=== PATIENT | male | born 1950 | race Caucasian/White ===

== ENCOUNTER → 2016-09-27 | Outpatient (CLI) | payer MEDICARE ==
[2015-06-08 15:23] VITALS: BP 141/70
[~2016-09-27] MED LIST: CRESTOR10 MG PO; HYDR-2678 PO; OMEP20CA9 PO; [UNRECOGNIZED DRUG - CODE]
--- NOTE | 2016-09-27 10:16 | RAD ---
Indication cholangiocarcinoma. B-cell lymphoma. PET/CT was performed from the skull through the proximal thigh. CT was performed primarily for localization and attenuation purposes as opposed to primary diagnostic purposes. The blood sugar during the examination was 101. 13.2 uCi of FDG was administered. Note is made of a previous examination 06/14/2016. On CT the visualized brain appears unremarkable. There is some debris, likely incidental, in the left maxillary sinus. There is a lymph node in the ventral left neck, immediately adjacent to the mandible measuring approximately 1.8 cm in greatest dimension. A few lymph nodes are noted in the axillary regions bilaterally. Significant mediastinal or hilar adenopathy is not seen. There is some coronary artery calcification. There is a small nodule in the right lower lobe unchanged. A parenchymal nodule in the right upper lobe, unchanged. Additional nodule seen in the left lower lobe, also unchanged. The liver and spleen appear unremarkable and the pancreas appears grossly normal. No adrenal or significant renal anomalies are seen. There is a right renal calculus. Vascular stent are noted in the pelvis. There are degenerative changes in the lumbar spine. On PET there is normal FDG activity in the visualized brain. The enlarged lymph node in the left neck is FDG avid. Maximum SUV is approximately 6.4. This represents a change compared to the previous exam. There are mildly avid FDG lymph nodes in the left axilla maximum SUV 2.4. (Previously maximum SUV associated with this node was 1.5). There is an additional lymph node behind the right pectoralis minor muscle new relative to the previous exam. Maximum SUV is 2. An additional minimally avid lymph node is seen laterally in the axilla. No FDG avid nodes are seen in the mediastinum or hilar areas. In the abdomen previously identified tiny node in the left external iliac chain is again seen. Maximum SUV on today's examination associated with this node is 2.9 whereas previously it was 2.6. An FDG avid lymph node with a maximum SUV of 4.9 is seen in the right groin (whereas previously the maximum SUV associated with this node was 2). 2 FDG avid lymph nodes are noted in the left groin. The more cephalad node has a maximum SUV of 6.8 whereas previously it was 4.2. The more inferior node has a maximum SUV of 7.1 where as previously it was 3.9. Some brown fat is noted in both hips. IMPRESSION: Increased FDG activity, relative to the prior examination, in lymph nodes in both groins, a small lymph node in the left external iliac chain and in both axilla and the left neck suggesting recurrent lymphoma..
== END | disposition home or self-care (01) ==
LOC: PETSC 07:31
PROVIDERS: ATTEND Internal Medicine Hematology & Oncology
DX: C22.1 Intrahepatic bile duct carcinoma (principal)
CPT/HCPCS: 78815; A9552

== ENCOUNTER → 2016-10-15 | Day surgery (SDC) | payer MEDICARE ==
[~2016-10-15] VITALS: Ht 182.9 cm; Wt 88.0 kg
[~2016-10-15] MED LIST changes: +BUPIVACAINE-EPI 0.5%-1:200000 50 ML VIAL. ONE; +CEFAZOLIN 2GM PREMIX 50 ML IV ONE; +DEXAMETHASONE SOD PHOS 20 MG/5 ML VIAL. ONE; +EPHEDRINE PF IN SALINE 50 MG/5 ML DISP.SYRIN. IV ONE; +FENTANYL PF 100 MCG/2 ML VIAL. IV PRN; +FENTANYL PF 100 MCG/2 ML VIAL. ONE; +HYDROMORPHONE 2 MG/ML VIAL. IV PRN; +IV RINGERS,LACTATED 1000ML 1,000 ML IV SCH; +LIDOCAINE 1% 1 ML SYRINGE. ID PRN; +LIDOCAINE 2% 100 MG/5 ML DISP.SYRIN. ONE; +MORPHINE SULFATE 2 MG/ML DISP.SYRIN. IV PRN; +ONDANSETRON PF 4 MG/2 ML VIAL. IV PRN; +ONDANSETRON PF 4 MG/2 ML VIAL. ONE; +PROCHLORPERAZINE 10 MG/2 ML VIAL. IV PRN; +PROPOFOL 20 ML IV ONE; +SEVOFLURANE 31 TO 60 MINUTES. IH ONE
--- NOTE | 2016-10-15 11:07 | PDOC4 ---
Operative Note Operative Note Operative Note: Preoperative Diagnosis: Lymphadenopathy Postoperative Diagnosis: Same Procedure: Right inguinal lymph node excisional biopsy Surgeon: Ariel Anesthesia: Gen. Specimen: Right inguinal lymph node to pathology Drains: None Complications: None Indication: The patient is a 66-year-old male with a prior history of lymphoma who was found on surveillance scanning to have some suspicious lymphadenopathy. This included both inguinal regions as well as the left neck. On physical examination there appears to be a palpable accessible lymph node in the right groin. We will therefore plan for a right inguinal lymph node biopsy. The details and risks of the procedure were discussed. The risks include bleeding, infection, seroma, lymph leak, pain, anesthetic risk, potential need for additional surgery or procedure. He understands and would like to proceed. Description: The patient was taken to the operating room and placed supine on the operating table. Gen. anesthesia was performed. The right groin was shaved and prepped with ChloraPrep and draped in a standard surgical manner. An incision was made in the right groin overlying the palpable lymph node. Cautery dissection was carried down through the subcutaneous tissue. The lymph node appeared to be in the superficial chain and potentially represented a cluster of 2 or more nodes. These nodes were mobilized from the surrounding tissues using cautery. Blood vessels were readily controlled with cautery as well. The lymph nodes were then fully excised and sent to pathology for evaluation. Palpation showed no other gross abnormalities in the region. The subcutaneous tissue was approximated with 3-0 Vicryl. The skin was closed with a 4-0 Monocryl running suture. The incision was infiltrated with half percent Marcaine with epinephrine. Steri-Strips and a sterile dressing were then applied. The patient tolerated the procedure well and was sent to the recovery room in stable condition. At the end of the case all counts were correct. AMANDO LI MD Oct 15, 2016 11:07
--- NOTE | 2016-10-15 11:08 | DISCH ---
DISCHARGE INSTRUCTIONS Condition on Discharge Condition on Discharge: Stable Activity After Discharge Activity Instructions for Disc: Activity as tolerated Diet after Discharge Diet after Discharge: Regular Wound Incision Care Wound/Incision Care: Other, see below (keep dressing clean and dry X 72 hours, may then remove and shower) Follow-Up Follow up with: Dr Li in 2 weeks, call for appointment [phone] AMANDO LI MD Oct 15, 2016 11:08
[2016-10-15 12:08] VITALS: BP 156/80
== END ==
LOC: SURG 08:04
PROVIDERS: ATTEND Surgery
DX: R59.1 Generalized enlarged lymph nodes (principal); K21.9 Gastro-esophageal reflux disease without esophagitis; E78.00 Pure hypercholesterolemia, unspecified; Z90.49 Acquired absence of other specified parts of digestive tract
CPT/HCPCS: 38500; 88184; 88185; C1769; J0690; J1100; J2405; J2704; J3010

== ENCOUNTER → 2017-04-25 | Outpatient (CLI) | payer MEDICARE ==
[2016-10-15 12:08] VITALS: BP 156/80
[~2017-04-25] MED LIST changes: -BUPIVACAINE-EPI 0.5%-1:200000 50 ML VIAL. ONE; -CEFAZOLIN 2GM PREMIX 50 ML IV ONE; -DEXAMETHASONE SOD PHOS 20 MG/5 ML VIAL. ONE; -EPHEDRINE PF IN SALINE 50 MG/5 ML DISP.SYRIN. IV ONE; -FENTANYL PF 100 MCG/2 ML VIAL. IV PRN; -FENTANYL PF 100 MCG/2 ML VIAL. ONE; -HYDROMORPHONE 2 MG/ML VIAL. IV PRN; -IV RINGERS,LACTATED 1000ML 1,000 ML IV SCH; -LIDOCAINE 1% 1 ML SYRINGE. ID PRN; -LIDOCAINE 2% 100 MG/5 ML DISP.SYRIN. ONE; -MORPHINE SULFATE 2 MG/ML DISP.SYRIN. IV PRN; -ONDANSETRON PF 4 MG/2 ML VIAL. IV PRN; -ONDANSETRON PF 4 MG/2 ML VIAL. ONE; -PROCHLORPERAZINE 10 MG/2 ML VIAL. IV PRN; -PROPOFOL 20 ML IV ONE; -SEVOFLURANE 31 TO 60 MINUTES. IH ONE
--- NOTE | 2017-04-25 11:15 | RAD ---
PET oncologic study 04/25/2017 Technique: Blood glucose prior to injection: 96 mg/dL Scan region: Skull base to mid thigh Radiopharmaceutical: F-18 FDG 12.77 mCi IV Calibration time: Start 07 25 hours and finished at 09 100 hours Administration time: 07 34 hours on 04/25/2017 Injection site: Left antecubital Postinjection imaging delay: Scan time 08 31 hours on 04/25/2017 Clinical information: Restaging; B-cell lymphoma, hepatocellular carcinoma and prostate cancer. Comparison: PET CT from 09/27/2016 Attenuation correction was performed utilizing a noncontrast, nondiagnostic CT. Findings: Physiologic FDG activity is identified within the brain parenchyma and oral cavity. Interval resolution of mild maxillary mucosal thickening. There is a left submandibular lymph node measuring 18 x 11 mm which is stable in size. There is increased associated FDG activity (Max SUV 2.5, previously 1.2). A right retropectoral lymph node measures 7 mm is stable with similar degree of FDG activity (Max SUV 1.9). 10 mm left axillary lymph node is stable (Max SUV 3.2, previously 2.4). Additional left axillary lymph node measures 9 mm and is stable (Max SUV 1.5, previously 1.9). When compared to prior examination (Max SUV 8.1 compared to 6.4 on the prior examination). Stable size of a right submandibular node measuring 7 mm (Max SUV 5.4, previously 3.1). Thyroid gland appears normal. There is an 9 mm solid noncalcified pulmonary nodule in the right upper lobe, stable (Max SUV 1.0). Stable 6 mm solid noncalcified pulmonary nodule in the superior segment right lower lobe. There is an adjacent 5 mm solid noncalcified pulmonary nodule in the peripheral lateral right lower lobe, stable. Stable 5 mm noncalcified pulmonary nodule in the left lower lobe. Mild FDG uptake is noted within bilateral axillary lymph nodes. Right axillary 7 mm lymph node No FDG avid lymph nodes in the mediastinal or hilar regions. Heart size is within normal limits. Thoracic aorta is normal in caliber. No pericardial or pleural effusions. There is a 12 x 11 mm solid noncalcified pulmonary nodule in the left upper lobe (series 3, image 124) with max SUV 0.85. There is an additional 3 mm solid noncalcified pulmonary nodule in the left upper lobe (series 3, image 136). There is a 6 mm noncalcified pulmonary nodule in the right upper lobe (series 3, image 22). No FDG avid lesions are identified within the liver. Gallbladder is surgically absent. Physiologic FDG uptake is identified in the genitourinary and GI systems. There is focal cortical calcification in the posterior midpole the right kidney measuring 6 mm, stable. By iliac stent graft is noted. Interval increase in size of a left external iliac lymph node previously measuring 8 mm by short axis and currently measuring 14 mm (Max SUV 9.3, previously 2.3). An additional 10 mm left common femoral node is present, similar in appearance without significant FDG activity. There is a left inguinal lymph node previously measuring 13 mm by short axis and currently measuring 16 mm by short axis with similar degree of FDG activity (Max SUV 6.9, previously 6.8). Impression: 1. FDG active left submandibular lymphadenopathy is stable. Right submandibular lymph node is borderline, stable. 2. Multiple solid noncalcified pulmonary nodules measuring up to 9 mm in the right upper lobe without associated FDG activity. Findings may represent low metabolic rate metastasis versus less likely granulomatous disease. These findings are stable. 3. Interval increase in size of a left external iliac lymph node and left inguinal lymph node. The left external iliac lymph node demonstrates increased FDG activity. Left inguinal lymph node demonstrates similar degree of FDG activity despite increase in size. 4. Similar size of bilateral axillary nodes.
== END | disposition home or self-care (01) ==
LOC: PETSC 07:22
PROVIDERS: ATTEND Internal Medicine Hematology & Oncology
DX: C22.1 Intrahepatic bile duct carcinoma (principal); C61 Malignant neoplasm of prostate; R91.8 Other nonspecific abnormal finding of lung field
CPT/HCPCS: 78815; A9552

== ENCOUNTER → 2017-07-25 | Outpatient (CLI) | payer MEDICARE ==
[2016-10-15 12:08] VITALS: BP 156/80
--- NOTE | 2017-07-25 12:42 | RAD ---
EXAM: PET/CT SKULL BASE TO MID THIGH 07/25/2017. HISTORY: History of prostate carcinoma. B-cell lymphoma. . History of cholangiocarcinoma. COMPARISON: Multiple prior examinations including PET CT 04/25/2017, September 27, 2016, CT chest abdomen and pelvis 05/17/2015. TECHNIQUE: CT was performed from the skull base through the mid thighs for the purposes of attenuation correction. 12.4 mCi F-18 fluorodeoxyglucose (FDG) was administered intravenously. After an uptake period, positron emission tomography was performed from the skull base through the mid thighs. The PET and CT data were fused and interpreted in combination a dedicated workstation. Blood glucose level was 98 mg/dL at the time of FDG administration. FINDINGS: Head and neck: Unchanged size of left submandibular lymph node measuring 1.8 x 1.1 cm, with interval decrease in FDG activity with maximum SUV 6.9, previously 8.1. No new cervical lymphadenopathy. Chest: Stable size of right axillary lymph node with mild FDG uptake with maximum SUV of 2.7, previously 3.1. Stable right retroperitoneal oral lymph node with mild FDG uptake. Stable size of right retropectoral lymph node with FDG uptake 2.5, previously 3.8. No significant FDG uptake above background in the left axillary lymph node. There are multiple additional noncalcified bilateral pulmonary nodules with no significant FDG uptake, however may be too small to resolve by PET. Represent a noncalcified nodule measures 0.9 cm in the right upper lobe. Abdomen and pelvis: There is physiologic uptake in both kidneys with excretion into the renal collecting system. Mildly enlarged left external iliac lymph node is stable in size measuring 1.8 cm with maximum SUV 6.3, previously 7.4. Immediately adjacent left inguinal lymph node is stable in size with maximum SUV of 5.4, previously 7.7 Musculoskeletal: No suspicious focal FDG activity. Uncorrected PET images: Uncorrected PET images demonstrate no additional significant lesion. Low-dose CT findings: Coronary artery calcifications. The thoracic aorta is normal in caliber with mild scattered calcified atheromatous disease dystrophic cortical calcification in the right kidney. Abdominal aorta is normal in caliber with moderate calcified atheromatous disease. There are bilateral common iliac stents. Prior prostatectomy. Impression: 1. No significant change in size of scattered left submandibular, right axillary, left iliac and inguinal hypermetabolic lymphadenopathy with decrease in the FDG activity suggestive of positive response to therapy. 2. No new discrete hypermetabolic mass or lymphadenopathy. 3. Stable bilateral subcentimeter noncalcified pulmonary nodules since March 2010 examination, consider benign.
== END | disposition home or self-care (01) ==
LOC: PETSC 07:30
PROVIDERS: ATTEND Internal Medicine Hematology & Oncology
DX: C85.10 Unspecified B-cell lymphoma, unspecified site (principal); C22.1 Intrahepatic bile duct carcinoma; Z85.46 Personal history of malignant neoplasm of prostate
CPT/HCPCS: 78815; A9552

== ENCOUNTER → 2018-01-09 | Outpatient (CLI) | payer MEDICARE | END | disposition home or self-care (01) | LOC: PETSC 08:01 | DX: C61 Malignant neoplasm of prostate (principal); C22.1 Intrahepatic bile duct carcinoma; C85.90 Non-Hodgkin lymphoma, unspecified, unspecified site; N20.0 Calculus of kidney | CPT/HCPCS: 78815; A9552 ==

== ENCOUNTER 2018-01-28 07:17 | Outpatient (CLI) | payer MEDICARE ==
[2018-01-28] MEDS ORDERED: LIDOCAINE WITH 8.4% SOD BICARB 3 ML DISP.SYRIN. (07:43)
[2018-01-28] MEDS ORDERED: GELATIN SPONGE SIZE 12-7MM SPONGE. (07:44)
[2018-01-28 07:47] LABS: ADD MAN DIFF? NO
[2018-01-28 07:49] LABS: BASO # 0.1 x10^3/uL (0.0-0.2); BASO % 1 % (0-3); EOS # 0.4 x10^3/uL (0.0-0.7); EOS % 5 % (0-3); HEMATOCRIT 39.9 % (39.0-53.0); HEMOGLOBIN 13.8 g/dL (13.0-17.5); LYMPH # 1.2 x10^3/uL (1.0-4.8); LYMPH % 16 % (24-48); MEAN CORPUSCULAR HEMOGLOBIN 32 pg (25-35); MEAN CORPUSCULAR HGB CONC 35 g/dL (31-37); MEAN CORPUSCULAR VOLUME 93 fL (79-100); MONO # 0.5 x10^3/uL (0.0-1.1); MONO % 7 % (0-9); NEUT # 5.2 x10^3uL (1.8-7.7); NEUT % 71 % (31-73); PLATELET COUNT 234 x10^3/uL (140-400); RED BLOOD COUNT 4.29 x10^6/uL (4.30-5.70); RED CELL DISTRIBUTION WIDTH 14.4 % (11.5-14.5); WHITE BLOOD COUNT 7.3 x10^3/uL (4.0-11.0)
[2018-01-28 08:03] LABS: INR 0.9 (0.8-1.1); PARTIAL THROMBOPLASTIN TIME 26 SEC (24-38)
[2018-01-28] MEDS ORDERED: MIDAZOLAM HCL/PF 2 MG/2 ML VIAL. (08:37)
[2018-01-28] MEDS ORDERED: fentaNYL PF VIAL 100 MCG/2 ML VIAL (08:38)
[2018-01-28] MEDS: LIDOCAINE WITH 8.4% SOD BICARB 3 ML DISP.SYRIN. IJ (08:50)
[2018-01-28] MEDS: fentaNYL PF VIAL 100 MCG/2 ML VIAL IV (09:00)
[2018-01-28] MEDS: MIDAZOLAM HCL/PF 2 MG/2 ML VIAL. IV (09:00)
== END 2018-01-28 11:54 | disposition home or self-care (01) ==
LOC: INTRAD 07:17
DX: C78.7 Secondary malignant neoplasm of liver and intrahepatic bile duct (principal); C61 Malignant neoplasm of prostate; Z85.72 Personal history of non-Hodgkin lymphomas; Z98.890 Other specified postprocedural states; E78.00 Pure hypercholesterolemia, unspecified; J43.9 Emphysema, unspecified; Z90.49 Acquired absence of other specified parts of digestive tract; K21.9 Gastro-esophageal reflux disease without esophagitis; Z72.89 Other problems related to lifestyle; F17.200 Nicotine dependence, unspecified, uncomplicated
CPT/HCPCS: 36415; 47000; 77012; 85025; 85610; 85730; 88307; 88313; 88341; 88342; 99152; 99153; J2250; J3010

== ENCOUNTER → 2018-06-12 | Outpatient (CLI) | payer MEDICARE ==
[2018-01-28 11:30] VITALS: BP 156/79
--- NOTE | 2018-06-12 12:45 | RAD ---
FDG tumor localization scan, PET/CT, 06/12/2018: History: Restaging cholangiocarcinoma Following IV injection of 12.1 mCi of 18 F-FDG, imaging was performed from the skull base to the proximal thighs. The noncontrast CT component was performed for attenuation correction and anatomic localization purposes rather than for primary diagnosis. The patient's blood glucose level at the time of injection was 85 MG/DL. Comparison is made to a study from 01/09/2018. There is a hypermetabolic left submandibular lymph node which has increased slightly in size. It measures 16 mm in width compared to a width of 13 mm on the previous study. It demonstrates a maximum SUV of 9.2, similar to the previous value of 9.0. There is a hypermetabolic right axillary lymph node measuring 19 mm in greatest dimension compared to a measurement of 14 mm on the previous study. Its maximum SUV is 8.2 compared to a measurement of 4.9 on the previous study. There is now an additional smaller mildly hypermetabolic right axillary lymph node just inferior to this larger node. No abnormal mediastinal or pulmonary FDG uptake is seen. The CT component again demonstrates several small pulmonary nodules. The largest of these lies in the right upper lobe and measures approximately 8 mm. These nodules are FDG PET negative, although that could be related to their small sizes. A vague area of decreased density is again noted in the superior aspect of the right lobe of liver. It is mildly hypermetabolic with a maximum SUV of 6.4. It is of similar size on the PET images when compared to the previous study. At that time the maximum SUV was 6.9. This reportedly represents a liver malignancy which has been treated with microwave ablation. No new hepatic abnormality is seen. Normal GI tract activity is present in the abdomen and pelvis. No additional hypermetabolic intra-abdominal process is seen. Hypermetabolic There is persistent hypermetabolic activity in the left external iliac and inguinal regions. The nodes are of similar size compared to 01/09/2018 study. At the left inguinal level the maximum SUV on the left is 8.3, similar to a value of 7.9 on the previous study. IMPRESSION: 1. Multifocal hypermetabolic activity which has progressed slightly in the left submandibular and right axillary regions. The left external iliac and inguinal adenopathy is relatively stable. 2. Stable PET-negative pulmonary nodules. 3. Stable treated right liver lesion.
== END | disposition home or self-care (01) ==
LOC: PETSC 12:08
PROVIDERS: ATTEND Internal Medicine Hematology & Oncology
DX: C22.1 Intrahepatic bile duct carcinoma (principal)
CPT/HCPCS: 78815; A9552

== ENCOUNTER → 2018-09-25 | Outpatient (CLI) | payer MEDICARE ==
[2018-01-28 11:30] VITALS: BP 156/79
[~2018-09-25] MED LIST changes: +ASPI-630 PO; +GABA300C18 PO; +LISI10TA2 PO; +OMEG1CAP6 PO; +OMEP20CA10 PO; -OMEP20CA9 PO
--- NOTE | 2018-09-25 10:18 | RAD ---
FDG tumor localization scan, PET/CT, 09/25/2018: History: Restaging cholangiocarcinoma Following IV injection of 13.1 mCi of 18 F-FDG, imaging was performed from the skull base to the proximal thighs. The noncontrast CT component was performed for attenuation correction and anatomic localization purposes rather than for primary diagnosis. The patient's blood glucose level at the time of injection was 86 MG/DL. Comparison is made to a study from 06/12/2018. The previously seen hypermetabolic left submandibular lymph node continues to increased in size. It now measures 25 mm cm in width compared to a measurement of approximately 18 mm on the previous study its maximum SUV is 10.7 compared to a measurement 9.2 on the previous study. There is an adjacent smaller hypermetabolic node which was not evident on the previous study. Hypermetabolic right axillary adenopathy has also progressed. There are 3 hypermetabolic right axillary lymph nodes the largest of these measures 17 mm in short axis dimension compared to a measurement of 12 mm on the previous study. It demonstrates a maximum SUV of 11.1 compared to a measurement of 8.2 on the previous study. No hypermetabolic pulmonary or mediastinal lesion is seen. The CT component again demonstrates several bilateral pulmonary nodules. Motion artifact is causing blurring of these nodules. These nodules remain FDG PET negative, however, that may be due to their small sizes. A hypermetabolic focus is again identified in the liver. The CT component demonstrates only a vague ill-defined area of decreased density in this region. On the PET component this lesion appears slightly larger than on the 06/12/2018 study. Its maximum SUV is similar to on the previous study. Normal GI tract and urinary tract activity is evident. Left external iliac and inguinal adenopathy has worsened slightly. For example a left external iliac lymph node which measured 14-15 mm in width on the previous study now measures 16-17 mm. A cluster of left inguinal lymph nodes has also increased slightly in size and demonstrates a maximum SUV of 11.4 compared to values of 8.5 on the previous study. IMPRESSION: 1. Worsening hypermetabolic left submandibular, right axillary, left iliac and inguinal adenopathy. 2. The hypermetabolic liver lesion appears slightly larger, although the degree of abnormal FDG uptake is similar to that seen on the previous exam. 3. Small bilateral pulmonary nodules remain FDG PET negative.
== END | disposition home or self-care (01) ==
LOC: PETSC 07:25
PROVIDERS: ATTEND Internal Medicine Hematology & Oncology
DX: C78.7 Secondary malignant neoplasm of liver and intrahepatic bile duct (principal); R91.8 Other nonspecific abnormal finding of lung field; R59.0 Localized enlarged lymph nodes; Z85.72 Personal history of non-Hodgkin lymphomas; Z85.46 Personal history of malignant neoplasm of prostate
CPT/HCPCS: 78815; A9552

== ENCOUNTER → 2019-01-01 | Outpatient (CLI) | payer MEDICARE ==
[2018-01-28 11:30] VITALS: BP 156/79
[~2019-01-01] MED LIST changes: -ASPI-630 PO; -GABA300C18 PO; -LISI10TA2 PO; -OMEG1CAP6 PO
--- NOTE | 2019-01-02 14:13 | RAD ---
Examination: PET W CT SKULL TO MIDTHIGH History: Restaging cholangiocarcinoma Comparison/Correlation: 09/25/2018 PET/CT exam Findings: 14.8 mCi F-18 FDG was intravenously administered. Imaging was performed from the skull base to the mid thighs. Blood glucose at the time of injection was 94 mg/dL. Hepatic reference uptake SUV max of 3.1 noted. Enlarged left submandibular gland lymph node measuring 2.7 cm x 1.4 cm is similar compared to the previous exam. Uptake of radiotracer again seen with currently SUV max of 8.4 present. Uptake right axillary lymph nodes are again identified with intense uptake. Largest of these measures 2.6 cm x 1.8 cm with SUV max of 9.9. This lymph node is increased x 0.2 cm in size compared to the previous exam. There are 3 additional smaller lymph nodes involving the right axillary region which are stable in size and have uptake of up to 5.1 at the largest of these lymph nodes which measures up to 1.4 cm x 0.8 cm. Other much smaller lymph nodes are present without uptake evident. No suspicious uptake slightly more freely within the right axilla, there again is seen another lymph node which has uptake with SUV max of 3.5. It measures 1.4 cm x 0.8 cm and it has remained stable. Right upper lobe pulmonary nodule measuring up to 1 cm diameter does not have uptake. It is stable in size. Punctate nodule involving the anterior right midthoracic level and additional nodule at the posterior right midthoracic level are stable in size measuring less than 0.5 cm diameter. Left lower lobe pulmonary nodule which is noncalcified measuring 0.5 similar diameter near the fluoroscopy is stable. Centrilobular emphysema is present. Infiltration of the liver is present. There is a region of uptake involving the hepatic dome corresponding to the previous exam with SUV max of up to 5.3. On PET imaging, this lesion is greater in size compared to previous exam. The region of uptake measures up to 3.1 cm x 2.2 cm currently as compared to previous exam with the region of uptake measured 2 cm x 1.6 cm. This appears mildly increase in size in the longitudinal dimension x 0.[address] images as compared to the previous PET/CT exam. At the infrarenal level, there is intense uptake with SUV max of 4.2 corresponding to a lymph node which is not enlarged. This is best seen on axial image 109. This lymph node is immediately anterior to the inferior vena cava measuring up to 1.1 cm x 0.7 cm. This finding is new in the interval. Diverticuli of the colon noted. Nonobstructive left renal lower pole calyceal calculus measuring 0.5 cm diameter. No suspicious bony process in the interval. Impression: Interval development of a new infrarenal retroperitoneal lymph node with intense uptake. This is of concern for metastatic involvement. Increase in size of the hepatic dome mass lesion appears be present on noncontrast CT imaging. Increased size of the region of uptake is noted as compared to previous PET/CT exam. Slight increase in size of the largest of the right axillary lymph nodes. Abnormal uptake involving the right axillary lymph nodes and left submandibular gland again seen compatible with active metastatic involvement. No change in pulmonary nodules. No abnormal uptake identified to involve these pulmonary nodules or the lung fragoso.
== END | disposition home or self-care (01) ==
LOC: PETSC 12:27
PROVIDERS: ATTEND Internal Medicine Hematology & Oncology
DX: C22.1 Intrahepatic bile duct carcinoma (principal); R59.0 Localized enlarged lymph nodes; K11.1 Hypertrophy of salivary gland; J43.2 Centrilobular emphysema; K76.89 Other specified diseases of liver; N20.0 Calculus of kidney; Z87.891 Personal history of nicotine dependence
CPT/HCPCS: 78815; A9552

== ENCOUNTER 2019-01-06 18:55 | Emergency (ER) | payer MEDICARE ==
[2018-01-28 11:30] VITALS: BP 156/79
[2019-01-06 21:11] LABS: CALCIUM 9.7 mg/dL (8.5-10.1); GFR 33.4; POTASSIUM 4.6 mmol/L (3.5-5.1)
[2019-01-06 23:38] LABS: BASO # 0.1 x10^3/uL (0.0-0.2); BASO % 0 % (0-3); EOS # 0.1 x10^3/uL (0.0-0.7); EOS % 1 % (0-3); HEMATOCRIT 36.4 % (39.0-53.0); LYMPH # 1.4 x10^3/uL (1.0-4.8); LYMPH % 12 % (24-48); MEAN CORPUSCULAR HEMOGLOBIN 30 pg (25-35); MEAN CORPUSCULAR HGB CONC 33 g/dL (31-37); MEAN CORPUSCULAR VOLUME 92 fL (79-100); MONO # 0.8 x10^3/uL (0.0-1.1); MONO % 7 % (0-9); NEUT # 9.2 x10^3uL (1.8-7.7); NEUT % 79 % (31-73); PLATELET COUNT 323 x10^3/uL (140-400); RED BLOOD COUNT 3.97 x10^6/uL (4.30-5.70); RED CELL DISTRIBUTION WIDTH 14.7 % (11.5-14.5); WHITE BLOOD COUNT 11.6 x10^3/uL (4.0-11.0)
--- NOTE | 2019-01-07 09:01 | RAD ---
CT of the abdomen and pelvis without contrast, 01/06/2019: History: Abdominal pain No IV contrast was administered for this study due to the patient's known renal insufficiency. No oral contrast material was utilized. Comparison is made to CT images from a PET/CT exam from 01/01/2019. There are single small pulmonary nodules in both lung bases which are unchanged. Several vague low density areas are noted in the liver, the largest of which lies superiorly in the right lobe. They are not optimally defined on these noncontrast scans. The recent PET/CT study showed at least one of these is hypermetabolic compatible with a neoplastic etiology. The gallbladder is surgically absent. No pancreatic abnormality is seen. The spleen is unremarkable. There is a small parenchymal calcification in the posterior aspect of the right kidney. There is mild renal scarring bilaterally. There is no evidence of hydronephrosis or ureteral obstruction. The adrenal glands are unremarkable. Moderate aortoiliac calcific plaquing is present. There are stents in the common iliac arteries bilaterally. A 13 x 10 mm right pericaval lymph node is again noted. It was hypermetabolic on the recent PET study. There is also a 16 x 9 mm lymph node along the medial margin of the left psoas muscle at the level aortic bifurcation which in retrospect was hypermetabolic on the recent PET/CT exam. No other abdominal or pelvic adenopathy is seen. A couple of scattered colonic diverticula are noted. No paracolonic inflammatory process is seen. The bowel loops are not dilated. Gastric mural thickening is probably due to lack of gastric distention. Active disease such as gastritis cannot be excluded. No free fluid or free air is evident in the abdomen or pelvis. Moderate multilevel degenerative change is present in the lumbar spine. IMPRESSION: 1. Hepatic lesions, at least one of which was shown to be hypermetabolic on the recent PET/CT exam, suggesting a neoplastic etiology. 2. Borderline enlarged retroperitoneal lymph nodes which were also hypermetabolic on the recent PET/CT exam. 3. Minimal colonic diverticulosis. 4. Renal scarring with a small right renal parenchymal calcification. 5. Tiny bibasilar pulmonary nodules are again noted. 6. No acute intra-abdominal or pelvic abnormality is detected. PQRS Compliance Statement: One or more of the following individualized dose reduction techniques were utilized for this examination: 1. Automated exposure control 2. Adjustment of the mA and/or kV according to patient size 3. Use of iterative reconstruction technique PQRS Compliance Statement: One or more of the following individualized dose reduction techniques were utilized for this examination: 1. Automated exposure control 2. Adjustment of the mA and/or kV according to patient size 3. Use of iterative reconstruction technique
== END 2019-01-06 20:20 | disposition left against medical advice (07) ==
LOC: ER 18:55
DX: N17.9 Acute kidney failure, unspecified (principal); R10.31 Right lower quadrant pain
CPT/HCPCS: 36415; 74176; 80048; 83605; 83690; 85025; 99285-25

== ENCOUNTER → 2019-03-24 | Outpatient (CLI) | payer MEDICARE ==
[2018-01-28 11:30] VITALS: BP 156/79
--- NOTE | 2019-03-25 08:17 | KCIC ---
MRI Lumbar Spine without contrast History: Lumbar stenosis. Chronic low back pain. Prior surgery 2014. Technique: Multiplanar, multi sequential MR imaging was performed of the lumbar spine. Comparison: None Findings: Mild upper curvature of the lumbar spine. Grade 1 anterolisthesis L5 on S1 approximately 4 mm due to bilateral L5 spondylolysis. Mild retrolisthesis L4 on L5 approximately 6 mm. Conus terminates at the normal location. No evidence of nerve root clumping. L1-L2: Small posterior disc bulge. No canal or neuroforaminal narrowing. L2-L3: Small posterior disc bulge. Mild facet arthropathy. No canal or neuroforaminal narrowing. L3-L4: Small broad-based posterior disc bulge with superimposed central small disc extrusion extending slightly inferiorly. Moderate left greater than right subarticular recess narrowing. Moderate facet arthropathy. Mild canal narrowing. Mild right neuroforaminal narrowing. L4-L5: Mild retrolisthesis. Postoperative changes left hemilaminectomy. No canal narrowing. Advanced facet arthropathy. Small broad-based disc bulge. Small central disc extrusion extending slightly inferiorly. L5-S1: Grade 1 anterolisthesis. Slight disc unroofing. Small disc extrusion extending superiorly. No canal narrowing. Advanced facet arthropathy. Bilateral L5 spondylolysis. Mild bilateral neural foraminal narrowing. Impression: 1. Multilevel lumbar spondylosis including disc bulges, small disc extrusions and advanced lower lumbar facet arthropathy. 2. L3-L4 mild canal and subarticular recess narrowing. 3. Grade 1 anterolisthesis L5 on S1 due to bilateral L5 spondylolysis. 4. Mild retrolisthesis L4 on L5. Electronically signed by: Donaldo Arriola DO (03/25/2019 8:14 AM) [email or web address]
== END | disposition home or self-care (01) ==
LOC: KCIC MRI 15:45
PROVIDERS: ATTEND Family Medicine
DX: M43.07 Spondylolysis, lumbosacral region (principal); M51.26 Other intervertebral disc displacement, lumbar region; M48.07 Spinal stenosis, lumbosacral region; M12.88 Other specific arthropathies, not elsewhere classified, other specified site; M25.78 Osteophyte, vertebrae; G89.29 Other chronic pain
CPT/HCPCS: 72148

== ENCOUNTER → 2019-03-26 | Outpatient (CLI) | payer MEDICARE ==
[2018-01-28 11:30] VITALS: BP 156/79
--- NOTE | 2019-03-26 10:27 | RAD ---
PET ONCOLOGY CLINICAL INDICATION: Lymphoma. Restaging. FDG PET-CT of the Body TECHNIQUE: The patient received an IV injection of 16.33 mCi 18F-FDG in the right antecubital fossa. After an initial uptake phase of approximately 60-90 minutes, a CT scan without oral contrast, without IV contrast was acquired. Subsequently, positron emission tomography images from the skull base to mid thigh were obtained. CT, PET and fused images were reconstructed in transaxial, coronal, and sagittal projections and interpreted from a workstation. The patient's plasma glucose was 94 mg/dl. PRIOR STUDIES: Previous PET/CT from 01/01/2019. CORRELATIVE STUDIES: None FINDINGS: CT: Please note that CT is used for anatomic correlation. Noncontrast sections through the brain are within normal limits. No enlarged cervical adenopathy. 2.6 x 2.2 cm enlarged right axillary lymph node is seen, previously 2.6 x 2.1 cm. No left axillary, mediastinal adenopathy. Evaluation of hilar lymphadenopathy is limited due to lack of IV contrast. Stable 1 cm nodule in the right upper lobe. Stable 7 mm nodule in the right lower lobe and 6 mm nodule in the subpleural right lower lobe. Stable 5 limited nodule in the subpleural left lower lobe. Mild emphysema. Heart is normal in size. No pericardial or pleural effusion. Noncontrast appearance of the liver, spleen, pancreas, adrenals within normal limits. Status post cholecystectomy. Nonobstructing 5 mm stone in the right kidney. No hydronephrosis. No enlarged retroperitoneal adenopathy. No free pelvic fluid or ascites. No bowel obstruction. Moderate atherosclerotic plaque in the infrarenal aorta and bilateral iliac arteries stents are seen in the bilateral common iliac arteries. Enlarged left inguinal lymph node measuring 2.4 x 1.6 cm, previously 2.1 x 1.8 cm. Another enlarged left groin lymph node measuring 2.6 x 1.5 cm, previously 2.5 x 1.9 cm. Left lower quadrant lymph lymph node measuring 1.6 x 1.4 cm, previously 1.7 x 1.4 cm. Left submandibular lymph node measuring 2.4 x 1.9 cm, previously 2.8 x 1.8 cm. Left deep cervical lymph node measuring 1.5 x 1.0 cm, previously 1.6 x 1.3 cm. No suspicious bony lesion. PET: Increased metabolic activity in the left submandibular lymph node with SUV max of 7.7, previously 7.3. Increased metabolic activity in the deep left cervical lymph node with SUV max of 3.5, previously 3.8. Increased metabolic activity in the dominant right axillary lymph node with SUV max of 9.4, previously 9.5. Increased metabolic activity in the left lower quadrant lymph node with SUV max of 3.3, previously 5.0. Increased metabolic activity in the couple of enlarged left inguinal lymph nodes with SUV max of 5.4, previously 7.5. Ill-defined low attenuating lesion is seen in the right hepatic dome with atelectatic activity of 3.4 cm, previously 6.2. IMPRESSION: PET-CT from the state range demonstrates: 1. Minimal interval change in size of lymph nodes with metabolic activity as described above. 2. Stable bilateral pulmonary nodules. 3. Metabolically active Right hepatic dome lesion concerning for metastasis. Nonemergent MRI of the abdomen with IV contrast is recommended. Electronically signed by: Kristopher Padilla DO (03/26/2019 10:24 AM) [facility]
== END | disposition home or self-care (01) ==
LOC: PETSC 08:08
PROVIDERS: ATTEND Internal Medicine Hematology & Oncology
DX: C22.1 Intrahepatic bile duct carcinoma (principal); C83.30 Diffuse large B-cell lymphoma, unspecified site; J43.9 Emphysema, unspecified; R59.0 Localized enlarged lymph nodes; I70.0 Atherosclerosis of aorta; I70.8 Atherosclerosis of other arteries; R91.8 Other nonspecific abnormal finding of lung field; Z90.49 Acquired absence of other specified parts of digestive tract; Z95.818 Presence of other cardiac implants and grafts
CPT/HCPCS: 78815; A9552

== ENCOUNTER 2019-04-14 08:21 | Outpatient (CLI) | payer MEDICARE ==
[2019-04-14] VITALS (7 sets, daily range): BP systolic 163–194; BP diastolic 70–103
[~2019-04-14] VITALS: Ht 182.9 cm; Wt 90.7 kg
[2019-04-14] MEDS ORDERED: ASPI-630 PO (08:52)
[2019-04-14] MEDS ORDERED: OMEG1CAP6 PO (08:52)
[2019-04-14] MEDS ORDERED: LISI10TA2 PO (08:52)
[2019-04-14] MEDS ORDERED: GABA300C18 PO (08:52)
[2019-04-14 08:54] LABS: BASO # 0.1 x10^3/uL (0.0-0.2); BASO % 1 % (0-3); EOS # 0.4 x10^3/uL (0.0-0.7); EOS % 5 % (0-3); LYMPH # 1.8 x10^3/uL (1.0-4.8); LYMPH % 25 % (24-48); MEAN CORPUSCULAR HEMOGLOBIN 32 pg (25-35); MEAN CORPUSCULAR HGB CONC 34 g/dL (31-37); MEAN CORPUSCULAR VOLUME 95 fL (79-100); MONO # 0.4 x10^3/uL (0.0-1.1); MONO % 6 % (0-9); NEUT # 4.3 x10^3/uL (1.8-7.7); NEUT % 62 % (31-73); PLATELET COUNT 282 x10^3/uL (140-400); RED BLOOD COUNT 4.31 x10^6/uL (4.30-5.70); RED CELL DISTRIBUTION WIDTH 15.7 % (11.5-14.5); WHITE BLOOD COUNT 6.9 x10^3/uL (4.0-11.0)
[2019-04-14 08:58] LABS: CALCIUM 9.7 mg/dL (8.5-10.1); GFR 33.4; POTASSIUM 5.1 mmol/L (3.5-5.1)
[2019-04-14 09:09] LABS: PROTHROMBIN TIME PATIENT 12.5 SEC (11.7-14.0)
[2019-04-14] MEDS ORDERED: LIDOCAINE WITH 8.4% SOD BICARB 3 ML DISP.SYRIN. ONE (10:05)
[2019-04-14] MEDS ORDERED: LIDOCAINE WITH 8.4% SOD BICARB 3 ML DISP.SYRIN. IJ ONE (10:45)
--- NOTE | 2019-04-14 11:30 | NUR ---
Discharge Note: KARYNA SYKES Discharge instructions and discharge home medications reviewed with Patient and a copy given. All questions have been answered and understanding verbalized. The following instructions and handouts were given: Incision care Discontinued lines and drains: IV removed, dressing clean and intact. Patient discharged to home with instructions to follow up with Dr. George. Addendum: 04/14/19 at 1138 by OSBALDO YI RN Amended: Links added.
--- NOTE | 2019-04-16 15:57 | RAD ---
Ultrasound-guided biopsy, left submandibular lymph node 04/14/2019 Indication: History of lymphoma. Multiple enlarged perihilar lymph nodes. Patient reports recently, prior biopsy of adenopathy is revealed only reactive change Consent: The procedure was explained in its entirety to the patient or the patients designated site safety representative by a member of the treatment team, including a discussion of the risks, benefits and commonly accepted alternatives to the procedure, as well as the expected consequences of no therapy whatsoever. Discussion of the risks included, but was not limited to, those that are most frequent and those that are rare but possibly severe or life-threatening, as well as the possibility of unforeseen complications. All elements of maximal sterile barrier technique including the use of a cap, mask, sterile gown, sterile gloves, large sterile sheet, appropriate hand hygiene, and 2% chlorhexidine for cutaneous antisepsis (or acceptable alternative antiseptic per current guidelines) were followed for this procedure. The left submandibular region was prepped and draped using sterile barrier technique. 1% lidocaine was administered for local anesthesia. Ultrasound evaluation demonstrates a abnormal lymph node in left submandibular region consistent with findings on prior imaging studies. This lymph node measures 3 cm in length by approximately 2 cm in depth, but has demonstrable cortical thickening. Under ultrasound guidance an 18-gauge Franseen needle was advanced through the needle multiple passes. Samples were divided amongst formalin and RPMI fluid. Manual pressure was held. No immediate complications were identified. Impression: Ultrasound-guided biopsy left submental lymph node
--- NOTE | 2019-04-18 00:05 | PATHOLOGY ---
[facility] Accession Number: [id number] . 01 Material submitted: . neck - LEFT NECK LYMPH NODE. Modifiers: left . 01 Clinical history: . hx lymphoma . 02 Diagnosis: "Left neck lymph node", needle biopsy: - Skin, subcutaneous tissue and fragments of lymph node showing hyperplasia; no evidence of lymphoma. (See comment). (CLW:ayan; 04/17/2019) MBR/04/17/2019 . 02 Comment: Sections show needle core biopsy fragments of lymph node. Fragments of skin and subcutaneous tissue are also noted. Within the lymph node tissue, the lymphocytes are predominantly small, round and mature-appearing with condensed chromatin and scant cytoplasm with admixed larger lymphoid cells. Partially sampled germinal centers containing tangible body macrophages are noted. No markedly atypical lymphoid cells, including Dheeraj-Rafa cells, are identified. No granulomas or other infiltrative processes are seen. . Due to the patient's history of lymphoma, to confirm the flow cytometry findings and to identify cells in a tissue architectural context, properly controlled immunohistochemical stains are performed. . Block A1 PAX-5 - highlights B-cells primarily in aggregates; CD3 - highlights admixed T-cells; CD10 - highlights small partially sampled germinal centers; BCL-6 - highlights small partially sampled germinal centers; BCL-2 - the germinal centers are nonreactive; CD23 - highlights residual follicular dendritic cell meshwork; Cyclin D1 - lacks diffuse nuclear staining; MUM-1 - stains occasional scattered smaller cells (likely plasma cells). . Flow cytometric immunophenotypic analysis was performed at [facility]. The diagnosis is "no flow immunophenotypic evidence of a lymphoproliferative disorder." There are 96.1% lymphocytes. Of the lymphocytes, there are 54% T-cells with a CD4/CD8 ratio of 3.5 and no aberrant T-cell antigen expression and 46% mature polyclonal B-cells (kappa/lambda ratio of 1.6). There is no flow immunophenotypic evidence of a B or T-cell lymphoproliferative disorder. Please see separate flow cytometry report from [facility] ([id number]). . Overall, the diagnosis is fragments of lymph node with hyperplasia. There is no evidence of lymphoma in the materials sampled. If there is a strong clinical suspicion for a lymphoproliferative disorder, complete morphologic evaluation of an involved lymph node may provide additional information, if clinically indicated. Clinical and radiographic correlation is required. The H and E stained slides are co-reviewed with Dr. Darion Mitchell. (CLW:ayan; 04/17/2019) . 02 Electronically signed: . Shelby Hudson MD, Pathologist NPI- [id number] . 01 Gross description: . The specimen is received in formalin, labeled "Jairo Talamantes L neck lymph node" and consists of a few needle cores of pink-mead tissue and clot measuring 1.3 x 0.8 x 0.1 cm in aggregate which are entirely submitted in A1. (ROHANY; 04/14/2019) SYU/SYU . 02 Pathologist provided ICD-10: R59.9 . 02 CPT . 972070, [id number], Q32586 Specimen Comment: A courtesy copy of this report has been sent to Specimen Comment: [phone], , . Specimen Comment: Report sent to ,DR LI / DR ALLEN Performed at: 01 [facility] [address] [place] [address] [address], [place] [id number] MD Jeffery García MD Phone: [phone] Performed at: 02 [place] [id number] [id number] MD Del Alonso MD Phone: [phone]
== END 2019-04-14 11:50 | disposition home or self-care (01) ==
LOC: INTRAD 08:21
PROVIDERS: ATTEND Surgery
DX: R59.1 Generalized enlarged lymph nodes (principal); Z79.01 Long term (current) use of anticoagulants
CPT/HCPCS: 36415; 38505; 76942; 80048; 85025; 85610; 88184; 88185; 88307; 88341; 88342

== ENCOUNTER → 2019-07-31 | Outpatient (CLI) | payer MEDICARE ==
[2019-04-14 11:27] VITALS: BP 170/82
[~2019-07-31] MED LIST changes: +ASPI-630 PO; +GABA300C18 PO; +LISI10TA2 PO; +OMEG1CAP6 PO
--- NOTE | 2019-07-31 16:20 | RAD ---
EXAM: PET/CT SKULL BASE TO MID THIGH. HISTORY: Restaging lymphoma. COMPARISON: 03/26/2019. TECHNIQUE: CT was performed from the skull base through the mid thighs for the purposes of attenuation correction. 14.7 mCi F-18 fluorodeoxyglucose (FDG) was administered intravenously. After an uptake period, positron emission tomography was performed from the skull base through the mid thighs. The PET and CT data were fused and interpreted in combination a dedicated workstation. Blood glucose level was 89 mg/dL at the time of FDG administration. FINDINGS: A left submandibular mass is hypermetabolic with maximum SUV 8.4. It measures 2.5 x 1.8 cm. Other smaller nodules are similarly hypermetabolic more posteriorly. A prominent right axillary lymph node demonstrates maximum SUV 8.6 and is unchanged in size 2.3 cm. Other small right axillary lymph nodes are not enlarged but are also hypermetabolic. Left axillary nodes are minimally metabolic with maximum SUV 1.1. Left inguinal nodes are mildly prominent but hypermetabolic with maximum SUV 6.7. There is a large region of effacement of the right parapharyngeal fat planes. There is moderate uptake throughout the region with maximum SUV 4.1. A mass in the hepatic dome demonstrates maximum SUV 5.6 and is centrally hypometabolic suggesting necrosis. It is ill-defined without contrast but is not clearly changed in size and a partially 4 cm. An uncalcified nodule in the right upper lobe on image 98 measures 10 mm and is stable. Smaller uncalcified nodules in both lower lobes are also unchanged. None is clearly hypermetabolic. A calcified granuloma is noted in the left upper lobe. Additional CT findings include degenerative cholecystectomy. The right kidney is moderately atrophic and contains a 7 mm calculus. There are stents bilaterally in the iliac arteries. There are small supraumbilical midline hernias containing only fat. Coronary atherosclerotic calcifications are noted. There is mild to moderate centrilobular emphysema. IMPRESSION: 1. There is effacement of the fat planes in the right parapharyngeal lesion with associated mass effect. There is moderate hypermetabolism in the region. Direct visualization or CT neck soft tissues with contrast is recommended to exclude a pharyngeal mass. 2. Left inguinal, right axillary, and left cervical hypermetabolic lymphadenopathy is not clearly changed in size. 3. Stable hypermetabolic mass superiorly in hepatic dome. 4. Stable of indeterminate pulmonary nodules are not clearly hypermetabolic. Attention on further follow-up.
== END | disposition home or self-care (01) ==
LOC: PETSC 08:14
PROVIDERS: ATTEND Internal Medicine Hematology & Oncology
DX: C22.1 Intrahepatic bile duct carcinoma (principal); C61 Malignant neoplasm of prostate; C83.30 Diffuse large B-cell lymphoma, unspecified site; J43.2 Centrilobular emphysema; J84.10 Pulmonary fibrosis, unspecified; R91.8 Other nonspecific abnormal finding of lung field; I25.10 Atherosclerotic heart disease of native coronary artery without angina pectoris; N20.0 Calculus of kidney; Z90.49 Acquired absence of other specified parts of digestive tract
CPT/HCPCS: 78815; A9552

== ENCOUNTER → 2019-11-06 | Outpatient (CLI) | payer MEDICARE ==
[2019-09-14 17:46] VITALS: BP 178/99
[~2019-11-06] MED LIST changes: -OMEP20CA10 PO; +OMEP20CA16 PO
--- NOTE | 2019-11-09 11:15 | RAD ---
EXAM: PET W CT SKULL TO MIDTHIGH EXAM DATE: 11/06/2019 INDICATION: Lymphoma restaging. History of intrahepatic cholangiocarcinoma. RADIOPHARMACEUTICAL: 14.3 mCi of F-18 Fluorodeoxyglucose (FDG) I.V. via the left antecubital fossa.. TECHNIQUE: Patient weight: 188 pounds. Following at least four-hour fasting, the patient's blood glucose was 93 mg/dl. Approximately 1 hour after administration of FDG, overlapping emission scanning was performed from the orbital meatal line through the pelvis. A low-dose CT was performed for attenuation correction purposes and anatomic localization. Fused images of PET and CT were reviewed. Any standardized uptake values (SUV) reported are maximum values within a volume region of interest, expressed in gm/ml. COMPARISON: PET CT of 03/26/2019 FINDINGS: PET: Enlarged left submandibular (level 1B) lymph node shows abnormal FDG uptake to max SUV of 9.5. Previously 7.7. Enlarged right axillary level 1 lymph node shows uptake to max SUV of 8.2. Previously 9.4. An adjacent, slightly deeper enlarged right level 1 axillary lymph node shows uptake to max SUV of 5.9. Asymmetric uptake in an upper jugular left level 2A node to a max SUV of 5.5. Previously 3.5. Ill-defined hepatic mass centered in segment 8 shows uptake to max SUV of 6.15. Previously 3.4. Left inguinal lymph nodes show uptake to max SUV of 4.82 and 4.32 (previously 5.4). Background mediastinal activity shows a max SUV of 2.4. Background hepatic activity shows a max SUV of 2.2. CT: In the head and neck, right greater than left bilateral mastoid effusions persist. Stable cervical and right axillary adenopathy, largest being the left submandibular node at 2.8 x 2.1 cm. In the chest, stable bilateral gynecomastia and interval development of interstitial thickening in the lungs and new bilateral pleural effusions. Stable bilateral pulmonary nodules measuring 1 cm in the posterior right upper lobe (image 79 of series 3), 8 mm in the lateral right lower lobe (image 102 of series 3) and 7 mm in the peripheral left lower lobe (image 110 of series 3). In the abdomen, the right hepatic lobe mass is subtly visible on liver windows on axial image 123 of series 3 and appears slightly larger at 5.5 cm transverse diameter compared with 4.4 cm previously (image 132 of series 3 on the prior study). Postcholecystectomy changes and right renal atrophy are noted along with extensive arterial calcifications in abdominal aorta and presence of bilateral common iliac artery stents. In the pelvis, superficial and deep left inguinal lymph nodes are unchanged to marginally decreased in size with the superficial node now measuring 1.3 cm short axis diameter versus 1.6 cm previously. No new pelvic adenopathy. Postprostatectomy surgical changes are redemonstrated. There is mild soft tissue stranding around the urinary bladder wall that could reflect cystitis in the appropriate clinical context. The bones reveal no acute or significant osseous abnormalities. Incidental left os acromiale. IMPRESSION: Overall evidence of positive treatment response to adenopathy with decreased FDG activity and some nodes slightly smaller in size but increased in size and FDG activity in the right hepatic lobe mass and left submandibular node. Deauville score 4 Electronically signed by: Jil Pena MD (11/09/2019 11:12 AM) [id number]
== END | disposition home or self-care (01) ==
LOC: PETSC 09:31
PROVIDERS: ATTEND Internal Medicine Hematology & Oncology
DX: K76.89 Other specified diseases of liver (principal); C85.90 Non-Hodgkin lymphoma, unspecified, unspecified site; R91.8 Other nonspecific abnormal finding of lung field; R59.0 Localized enlarged lymph nodes; H74.8X3 Other specified disorders of middle ear and mastoid, bilateral; N62 Hypertrophy of breast; N26.1 Atrophy of kidney (terminal); I70.0 Atherosclerosis of aorta; Z90.49 Acquired absence of other specified parts of digestive tract; Z85.89 Personal history of malignant neoplasm of other organs and systems
CPT/HCPCS: 78815; A9552